=== PATIENT | female | born 1985 | race Caucasian/White ===

== ENCOUNTER 2017-04-29 06:03 | Day surgery (SDC) | payer OTHER ==
[~2017-04-29] VITALS: Ht 157.5 cm; Wt 71.7 kg
[2017-04-29] MEDS ORDERED: LIDOCAINE 2% 1000 MG/50 ML VIAL INJ ONE (07:15)
[2017-04-29 07:18] LABS: PROTHROMBIN TIME 10.1 secs (10.8-13.4)
[2017-04-29] MEDS ORDERED: MORPHINE SULFATE 2 MG/ML SYR IVP PRN (08:10)
[2017-04-29] MEDS ORDERED: MORPHINE SULFATE 2 MG/ML SYR IM PRN (08:15)
== END 2017-04-29 09:27 | disposition home or self-care (01) ==
LOC: MDS 06:03 → MMU 06:03 → MDS 09:27
PROVIDERS: ATTEND Internal Medicine Gastroenterology
DX: K76.0 Fatty (change of) liver, not elsewhere classified (principal); Z90.49 Acquired absence of other specified parts of digestive tract; Z98.890 Other specified postprocedural states; Z79.899 Other long term (current) drug therapy
CPT/HCPCS: 36415; 47000; 76705; 85610; 85730; J2001; J2270; Q0092; 88307; 88313

== ENCOUNTER 2018-12-25 09:26 | Day surgery (SDC) | payer OTHER ==
[~2018-12-25] VITALS: Ht 157.5 cm; Wt 77.1 kg
[2018-12-25] MEDS ORDERED: TOPI25TA41 PO (10:32)
[2018-12-25] MEDS ORDERED: BEN50 PO (10:32)
[2018-12-25 10:58] LABS: BASOPHILS # (AUTO) 0.1 K/uL (0.00-0.22); BASOPHILS % (AUTO) 0.7 % (0.0-2.0); EOSINOPHILS # (AUTO) 0.1 K/uL (0-0.4); EOSINOPHILS % (AUTO) 1.5 % (0.0-4.0); HEMATOCRIT 41.9 % (36-48); HEMOGLOBIN 14.1 g/dL (12.0-16.0); LYMPHOCYTES # (AUTO) 2.6 K/uL (2.5-16.5); LYMPHOCYTES % (AUTO) 34.1 % (20.5-51.1); MEAN CORPUSCULAR HEMOGLOBIN 31 pg (27-31); MEAN CORPUSCULAR HGB CONC 34 g/dL (33-37); MEAN CORPUSCULAR VOLUME 92.8 fL (80-94); MONOCYTES # (AUTO) 0.5 K/uL (0.8-1.0); NEUTROPHILS # (AUTO) 4.3 K/uL (1.8-7.7); NEUTROPHILS % (AUTO) 56.7 % (42.2-75.2); PLATELET COUNT (AUTO) 262 K/uL (140-450); RED BLOOD CELL COUNT(AUTO) 4.51 MIL/uL (4.20-5.40); RED CELL DISTRIBUTION WIDTH 13.5 % (11.6-13.7); WHITE BLOOD COUNT (AUTO) 7.5 K/uL (4.8-10.8)
[2018-12-25 11:16] LABS: PROTHROMBIN TIME 9.7 secs (10.8-13.4)
[2018-12-25] MEDS: MORPHINE SULFATE 2 MG/ML SYR IVP PRN ×2 (12:00→12:56)
[2018-12-25] MEDS ORDERED: MORPHINE SULFATE 4 MG/ML SYR ONE (12:05)
[2018-12-25] MEDS ORDERED: fentaNYL 0.05 MG/ML VIAL ONE (12:06)
[2018-12-25] MEDS ORDERED: LIDOCAINE 2% 1000 MG/50 ML VIAL INJ ONE (12:06)
== END 2018-12-25 13:43 | disposition home or self-care (01) ==
LOC: MTU 09:26 → MDS 09:26
PROVIDERS: ATTEND Internal Medicine Gastroenterology
DX: R94.5 Abnormal results of liver function studies (principal); E66.9 Obesity, unspecified; Z79.899 Other long term (current) drug therapy; Z68.31 Body mass index [BMI] 31.0-31.9, adult; Z90.49 Acquired absence of other specified parts of digestive tract; Z98.890 Other specified postprocedural states
CPT/HCPCS: 36415; 47000; 76942; 81025; 85025; 85610; 85730; J2001; J2270; J3010; Q0092; 88307; 88313